=== PATIENT | male | born 1975 | race Two or more races ===

== ENCOUNTER 2025-01-24 01:26 | Emergency (ER) | payer OTHER ==
[~2025-01-24] VITALS: Ht 190.5 cm; Wt 104.3 kg
[2025-01-24] MEDS ORDERED: ZESTRIL20 MG (01:51)
[2025-01-24] MEDS ORDERED: TRAZODONE HCL50 MG (01:51)
[2025-01-24] MEDS ORDERED: ZYLOPRIM100 M1 (01:52)
[2025-01-24] MEDS ORDERED: TETANUS & DIPHTHERIA TOX,ADULT 0.5 ML VIAL IM STA (03:01)
[2025-01-24] MEDS ORDERED: DIPHTH,PERTUSS(ACELL),TET VAC 0.5 ML SYRINGE IM ONE (03:15)
== END 2025-01-24 03:52 | disposition home or self-care (01) ==
LOC: ER 01:26
DX: S61.211A Laceration without foreign body of left index finger without damage to nail, initial encounter (principal); W26.0XXA Contact with knife, initial encounter; Y93.G1 Activity, food preparation and clean up; Y92.098 Other place in other non-institutional residence as the place of occurrence of the external cause; Y99.8 Other external cause status
CPT/HCPCS: 12001; 90471; 90714; J1670